=== PATIENT | female | born 1945 | race Caucasian/White ===

== ENCOUNTER 2017-09-06 21:56 | Emergency (ER) | payer MEDICARE, OTHER ==
[~2017-09-06] VITALS: Ht 168.9 cm; Wt 125.0 kg
[2017-09-06 22:00] VITALS: BP 198/90; PULSE 104; RESP 16; TEMP 99.1; O2SAT 95
[2017-09-06] MEDS ORDERED: LISI-515 PO (22:45)
[2017-09-06] MEDS ORDERED: LORA5TAB3 PO (22:45)
[2017-09-06] MEDS ORDERED: SITA1TAB2 PO (22:45)
[2017-09-06] MEDS ORDERED: LANTUS2P SQ (22:45)
[2017-09-06] MEDS ORDERED: ASPI81CH6 CHEW (22:45)
[2017-09-06] MEDS ORDERED: GABA600T PO (22:46)
[2017-09-06] MEDS ORDERED: LIPI40TA PO (22:46)
[2017-09-06] MEDS ORDERED: VENL75TA PO (22:46)
[2017-09-06] MEDS ORDERED: TRAZ50TA12 PO (22:47)
[2017-09-06] MEDS ORDERED: AMIT10TA6 PO (22:47)
[2017-09-06] MEDS ORDERED: [UNRECOGNIZED DRUG - OTHER] PO (22:47)
[2017-09-06 22:48] VITALS: BP 165/73; PULSE 93; RESP 18; O2SAT 98
[2017-09-06] MEDS ORDERED: VITATAB11 (22:48)
[2017-09-06 23:00] VITALS: O2SAT 97
[2017-09-06] MEDS ORDERED: ONDANSETRON HCL 4 MG/2 ML VIAL IV PUSH ONE (23:15)
[2017-09-06] MEDS ORDERED: SODIUM CHLOR 0.9% 1000 ML INJ 1,000 ML IV ONE (23:15)
[2017-09-06] MEDS ORDERED: IBUPROFEN 600 MG TAB PO ONE (23:15)
--- NOTE | 2017-09-06 23:15 | PD ---
HPI Chief Complaint: GI Complaint Time Seen by Provider: 23:08 Travel History International Travel<30 days: No Contact w/Intl Traveler<30days: No Traveled to known affect area: No History of Present Illness HPI This is a 72-year-old female with history of hypertension, diabetes mellitus, hyperlipidemia, who presents here with nausea vomiting diarrhea since yesterday. Patient states on Tuesday evening while driving down here from [place], she was drinking milk it tasted better. She reports it tasted slightly sour however she still drank it. She states at 7:00 in the morning on Tuesday she started sprinting nausea vomiting and loose stools. She denies any chills but does report fevers. She denies any URI symptoms. There is no reported urinary symptoms. She does report mild headache with the vomiting. There are no other complaints at the time of my examination. PFSH Past Medical History Cardiovascular Problems: Yes (HTN, high cholesterol) Diabetes: Yes Patient Takes Glucophage: No Gastrointestinal Disorders: Yes (diverticulosis ) Respiratory: Yes (idiopathic SOB, sleep apnea) Pneumonia: Yes Sleep Apnea: Yes (cpap at home ) Tetanus Vaccination: > 5 Years Influenza Vaccination: Yes ?: Not Past Surgical History Hysterectomy: Yes (total ) Other Surgery: Yes (3 spinal fusions t9-L5) Social History Alcohol Use: No Tobacco Use: No Substance Use: No Allergies-Medications (Allergen,Severity, Reaction): Coded Allergies: Sulfa (Sulfonamide Antibiotics) (Verified Allergy, Unknown, 09/06/17) albuterol (Verified Allergy, Unknown, 09/06/17) enoxaparin (Verified Allergy, Unknown, 09/06/17) Reported Meds & Prescriptions Reported Meds & Active Scripts Active Reported Vitamin B Complex (B-Complex Vitamins) 1 Tab [dizanidine] 2 Mg PO DAILY Amitriptyline (Amitriptyline HCl) 10 Mg Tab 20 Mg PO HS Trazodone (Trazodone HCl) 50 Mg Tab 50 Mg PO HS Gabapentin 600 Mg Tab 900 Mg PO BID Effexor (Venlafaxine HCl) 75 Mg Tab 75 Mg PO DAILY Lipitor (Atorvastatin Calcium) 40 Mg Tab 40 Mg PO HS Loratadine-D 12 HR (Loratadine-Pseudoephedrine 12 HR) 5-120 Mg Tab 10 Tab PO DAILY Lisinopril 20 Mg Tab 20 Mg PO DAILY Januvia (Sitagliptin Phosphate) 100 Mg Tab 100 Mg PO DAILY Lantus Inj (Insulin Glargine) 1,000 Unit/10 Ml Vial 45 Units SQ HS Aspirin Low Dose (Aspirin) 81 Mg Chew 81 Mg CHEW DAILY Review of Systems Except as stated in HPI: all other systems reviewed are Neg General / Constitutional: Positive: Fever, No: Chills HENT: Positive: Headaches, No: Neck Stiffness (bifrontal), Neck Pain Cardiovascular: No: Chest Pain or Discomfort, Palpitations Respiratory: No: Cough, Shortness of Breath Gastrointestinal: Positive: Nausea, Vomiting, Diarrhea, Abdominal Pain (crampy discomfort, no true abdominal pain.) Genitourinary: No: Frequency, Dysuria Musculoskeletal: No: Myalgias, Weakness, Pain Skin: No Rash Neurologic: Positive: Headache (mild bifrontal), No: Dizziness, Change in Mentation Physical Exam Narrative GENERAL: Well-nourished, well-developed patient in no acute distress. SKIN: Focused skin assessment warm/dry. HEAD: Normocephalic/atraumatic. EYES: No scleral icterus. No injection or drainage. NECK: Supple, trachea midline. No JVD or lymphadenopathy. CARDIOVASCULAR: Regular rate and rhythm without murmurs, gallops, or rubs. RESPIRATORY: Breath sounds equal bilaterally. No accessory muscle use. GASTROINTESTINAL: Abdomen soft, non-tender, nondistended. No rebound or guarding. MUSCULOSKELETAL: No cyanosis, or edema. NEUROLOGICAL: Awake and alert. Cranial nerves II through XII intact. Motor grossly within normal limits. Five out of 5 muscle strength in all muscle groups. Normal speech. Data Data Last Documented VS Vital Signs Date Time Temp Pulse Resp B/P (MAP) Pulse Ox O2 Delivery O2 Flow Rate FiO2 09/06/17 22:48 93 18 165/73 (103) 98 Room Air 09/06/17 22:00 99.1 Orders Orders Complete Blood Count With Diff (09/06/17 23:09) Comprehensive Metabolic Panel (09/06/17 23:09) Lipase (09/06/17 23:09) Urinalysis - C+S If Indicated (09/06/17 23:09) Iv Access Insert/Monitor (09/06/17 23:09) Ecg Monitoring (09/06/17 23:09) Oximetry (09/06/17 23:09) Sodium Chlor 0.9% 1000 Ml Inj (Ns 1000 M (09/06/17 23:15) Ondansetron Inj (Zofran Inj) (09/06/17 23:15) Ibuprofen (Motrin) (09/06/17 23:15) Acetaminophen (Tylenol) (09/06/17 23:30) Sodium Chlorid 0.9% 500 Ml Inj (Ns 500 M (09/07/17 00:45) Labs Laboratory Tests Test 09/06/17 23:30 09/07/17 00:30 White Blood Count 5.7 TH/MM3 Red Blood Count 4.57 MIL/MM3 Hemoglobin 14.7 GM/DL Hematocrit 41.5 % Mean Corpuscular Volume 90.7 FL Mean Corpuscular Hemoglobin 32.1 PG Mean Corpuscular Hemoglobin Concent 35.4 % Red Cell Distribution Width 13.4 % Platelet Count 158 TH/MM3 Mean Platelet Volume 9.6 FL Neutrophils (%) (Auto) 68.8 % Lymphocytes (%) (Auto) 17.0 % Monocytes (%) (Auto) 13.3 % Eosinophils (%) (Auto) 0.5 % Basophils (%) (Auto) 0.4 % Neutrophils # (Auto) 3.9 TH/MM3 Lymphocytes # (Auto) 1.0 TH/MM3 Monocytes # (Auto) 0.8 TH/MM3 Eosinophils # (Auto) 0.0 TH/MM3 Basophils # (Auto) 0.0 TH/MM3 CBC Comment DIFF FINAL Differential Comment Blood Urea Nitrogen 27 MG/DL Creatinine 1.16 MG/DL Random Glucose 210 MG/DL Total Protein 7.3 GM/DL Albumin 3.6 GM/DL Calcium Level 8.8 MG/DL Alkaline Phosphatase 125 U/L Aspartate Amino Transf (AST/SGOT) 33 U/L Alanine Aminotransferase (ALT/SGPT) 30 U/L Total Bilirubin 1.6 MG/DL Sodium Level 140 MEQ/L Potassium Level 3.7 MEQ/L Chloride Level 107 MEQ/L Carbon Dioxide Level 24.5 MEQ/L Anion Gap 9 MEQ/L Estimat Glomerular Filtration Rate 46 ML/MIN Lipase 61 U/L Urine Color YELLOW Urine Turbidity CLEAR Urine pH 5.5 Urine Specific [place] 1.024 Urine Protein TRACE mg/dL Urine Glucose (UA) 1000 mg/dL Urine Ketones NEG mg/dL Urine Occult Blood TRACE Urine Nitrite NEG Urine Bilirubin NEG Urine Urobilinogen LESS THAN 2.0 MG/DL Urine Leukocyte Esterase NEG Urine RBC 1 /hpf Urine WBC 1 /hpf Urine Squamous Epithelial Cells <1 /hpf Urine Bacteria RARE /hpf Urine Hyaline Casts 13 /lpf Urine Granular Casts 1 /lpf Urine Mucus FEW /lpf Microscopic Urinalysis Comment CULT NOT INDICATED MDM Medical Decision Making Medical Screen Exam Complete: Yes Emergency Medical Condition: Yes Differential Diagnosis Viral gastroenteritis versus foodborne related gastroenteritis versus metabolic derangement. Narrative Course 72-year-old female presents here with nausea vomiting and loose stools. The patient has a history of diabetes mellitus. She states that she had suspicious milk on Tuesday when they were driving down from [place]. The patient denies any chills but did states that she felt febrile. This is likely food related. White blood cell count is within normal limits. Her BUN and creatinine were elevated at 27 over 1.13. His been given a 1 L of IVD fluid followed by a second 500 cc bolus. She's been given Zofran. She is tolerated her Tylenol without difficulty. She's been able to tolerate water without any problems. She'll be discharged with a prescription for Compazine. She told to use Afrin nausea. She's also instructed to return if she does any worsening symptoms i.e. continued fever, inability to hold down fluids, or any other reason. She is made aware of her findings on lab and will be given a copy of her lab work to take home when she goes back to [place]. Diagnosis Primary Impression: Nausea vomiting and diarrhea Additional Impressions: Diabetes mellitus Mild dehydration Additional Instructions: Return if feeling worse. Drink plenty of fluids. Follow up with her primary care physician when you return back home to [place]. Med/Other Pt SpecificInfo: Prescription(s) given Scripts Prochlorperazine Maleate (Prochlorperazine Maleate) 10 Mg Tab 10 MG PO Q6H Y for NAUSEA OR VOMITING, #15 TAB 0 Refills Prov: Dewayne Mercado MD 09/07/17 Disposition: 01 DISCHARGE HOME Condition: Stable Dewayne Mercado MD Sep 06, 2017 23:15
[2017-09-06] MEDS ORDERED: ACETAMINOPHEN 325 MG TAB PO ONE (23:30)
[2017-09-07] LABS: AUTOMATED NEUTROPHIL # 3.9 TH/MM3 (1.8-7.7); BASOPHIL % 0.4 % (0.0-2.0); EOSINOPHIL % 0.5 % (0.0-4.0); HEMATOCRIT 41.5 % (35.0-46.0); HEMOGLOBIN 14.7 GM/DL (11.6-15.3); MEAN CELL VOLUME 90.7 FL (80.0-100.0); MEAN CORPUSCULAR HEMOGLOBIN 32.1 PG (27.0-34.0); MEAN CORPUSCULAR HGB CONC 35.4 % (32.0-36.0); MEAN PLATELET VOLUME 9.6 FL (7.0-11.0); MONO % 13.3 % (0.0-8.0); MONOCYTE # 0.8 TH/MM3 (0-0.9); NEUT % 68.8 % (16.0-70.0); PLATELET COUNT 158 TH/MM3 (150-450); RED BLOOD COUNT 4.57 MIL/MM3 (4.00-5.30); RED CELL DISTRIBUTION WIDTH 13.4 % (11.6-17.2); WHITE BLOOD COUNT 5.7 TH/MM3 (4.0-11.0)
[2017-09-07 00:14] LABS: ALBUMIN 3.6 GM/DL (3.4-5.0); ALT (GPT) 30 U/L (10-53); AST (GOT) 33 U/L (15-37); BICARBONATE 24.5 MEQ/L (21.0-32.0); BLOOD UREA NITROGEN 27 MG/DL (7-18); CALCIUM 8.8 MG/DL (8.5-10.1); CHLORIDE 107 MEQ/L (98-107); CREATININE 1.16 MG/DL (0.50-1.00); GLOMERULAR FILTRATION RATE 46 ML/MIN (>89); GLUCOSE,RANDOM 210 MG/DL (74-106); LIPASE 61 U/L (73-393); SODIUM (NA) 140 MEQ/L (136-145)
[2017-09-07 00:16] LABS: ALKALINE PHOSPHATASE 125 U/L (45-117); TOTAL BILIRUBIN ADULT 1.6 MG/DL (0.2-1.0); TOTAL PROTEIN 7.3 GM/DL (6.4-8.2)
[2017-09-07] MEDS ORDERED: SODIUM CHLORID 0.9% 500 ML INJ 500 ML IV ONE (00:45)
[2017-09-07 00:52] LABS: BACTERIA, URINE RARE /hpf; BILIRUBIN, URINE NEG (NEG); BLOOD, URINE TRACE (NEG); GLUCOSE,URINE 1000 mg/dL (NEG); HYALINE CAST, URINE 13 /lpf (RARE); KETONE, URINE NEG (NEG); MUCUS URINE FEW /lpf (OCC); NITRITE,URINE NEG (NEG); PH, URINE 5.5 (5.0-8.5); SQUAMOUS EPITHELIAL CELL URINE <1 /hpf (0-5); URINE COLOR YELLOW (YELLW/STRAW); URINE LEUKOCYTE ESTERASE NEG (NEG)
[2017-09-07] MEDS ORDERED: PROC10TA PO (01:12)
[2017-09-10] MEDS ORDERED: TIZA2CAP3 PO (12:08)
== END 2017-09-07 01:48 | disposition home or self-care (01) ==
LOC: NEPE 21:56
DX: R11.2 Nausea with vomiting, unspecified (principal); R19.7 Diarrhea, unspecified; E11.9 Type 2 diabetes mellitus without complications; E86.0 Dehydration; E78.00 Pure hypercholesterolemia, unspecified; I10 Essential (primary) hypertension; Z79.4 Long term (current) use of insulin
CPT/HCPCS: 80053; 81001; 83690; 85025; 96361; 96374; 99284; J2405; J7030; J7040

== ENCOUNTER 2017-09-08 12:44 | Emergency (ER) | payer OTHER ==
[2017-09-08] VITALS (7 sets, daily range): BP systolic 171–243; BP diastolic 75–104; PULSE 81–104; RESP 16–24; TEMP 98.2; O2SAT 0–99
[~2017-09-08] VITALS: Ht 167.6 cm; Wt 122.0 kg
[~2017-09-08 12:44] MED LIST: AMIT10TA6 PO; ASPI81CH6 CHEW; GABA600T PO; LANTUS2P SQ; LIPI40TA PO; LISI-515 PO; LORA5TAB3 PO; PROC10TA PO; SITA1TAB2 PO; TRAZ50TA12 PO; VENL75TA PO; VITATAB11; [UNRECOGNIZED DRUG - OTHER] PO
[2017-09-08] MEDS ORDERED: SODIUM CHLOR 0.9% 1000 ML INJ 1,000 ML IV SCH (16:07)
--- NOTE | 2017-09-08 16:11 | PD ---
HPI Chief Complaint: GI Complaint Time Seen by Provider: 15:56 Travel History International Travel<30 days: No Contact w/Intl Traveler<30days: No Traveled to known affect area: No History of Present Illness HPI This is a 72-year-old female history of hypertension, diabetes, hyperlipidemia who presents for evaluation. The patient initially presented here on September 06 for evaluation after possible food poisoningshe reports that she drank sour milk and developed nausea, vomiting, diarrhea. She was prescribed Compazine which has helped with her vomiting-she reports that she has had some persistent nausea but has not vomited since her visit on Tuesday. She has slowly been able to advance her diet- she has been able to tolerate chicken noodle soup, toast. She presents today because she has continued to feel fatigue, nausea, her blood sugar was elevated in the mid 200s at home and she has been having chills. She has not any any objective fevers. She reports slightly loose stools still. Denies abdominal pain, cough, congestion, sore throat, rash. She has not taken her Lantus over the past few days because of her decreased diet. She has no other complaints. PFSH Past Medical History Cardiovascular Problems: Yes (HTN, high cholesterol) Diabetes: Yes Gastrointestinal Disorders: Yes (diverticulosis ) Respiratory: Yes (idiopathic SOB, sleep apnea) Pneumonia: Yes Sleep Apnea: Yes (cpap at home ) Past Surgical History Hysterectomy: Yes (total ) Other Surgery: Yes (3 spinal fusions t9-L5) Social History Alcohol Use: No Tobacco Use: No Substance Use: No Allergies-Medications (Allergen,Severity, Reaction): Coded Allergies: Sulfa (Sulfonamide Antibiotics) (Verified Allergy, Unknown, 09/08/17) albuterol (Verified Allergy, Unknown, 09/08/17) enoxaparin (Verified Allergy, Unknown, 09/08/17) NSAIDS (Non-Steroidal Anti-Inflamma (Verified Adverse Reaction, Severe, 09/08/17) GI UPSET Reported Meds & Prescriptions Reported Meds & Active Scripts Active Prochlorperazine Maleate 10 Mg Tab 10 Mg PO Q6H PRN Reported Vitamin B Complex (B-Complex Vitamins) 1 Tab [dizanidine] 2 Mg PO DAILY Amitriptyline (Amitriptyline HCl) 10 Mg Tab 20 Mg PO HS Trazodone (Trazodone HCl) 50 Mg Tab 50 Mg PO HS Gabapentin 600 Mg Tab 900 Mg PO BID Effexor (Venlafaxine HCl) 75 Mg Tab 75 Mg PO DAILY Lipitor (Atorvastatin Calcium) 40 Mg Tab 40 Mg PO HS Loratadine-D 12 HR (Loratadine-Pseudoephedrine 12 HR) 5-120 Mg Tab 10 Tab PO DAILY Lisinopril 20 Mg Tab 20 Mg PO DAILY Januvia (Sitagliptin Phosphate) 100 Mg Tab 100 Mg PO DAILY Lantus Inj (Insulin Glargine) 1,000 Unit/10 Ml Vial 45 Units SQ HS Aspirin Low Dose (Aspirin) 81 Mg Chew 81 Mg CHEW DAILY Review of Systems Except as stated in HPI: all other systems reviewed are Neg Physical Exam Narrative GENERAL: Well-developed well-nourished female in no acute distress. Noted to be hypertensive. SKIN: Warm and dry. HEAD: Atraumatic. Normocephalic. EYES: Pupils equal and round. No scleral icterus. No injection or drainage. ENT: No nasal bleeding or discharge. Mucous membranes pink and moist. NECK: Trachea midline. No JVD. CARDIOVASCULAR: Regular rate and rhythm. No murmur appreciated. RESPIRATORY: No accessory muscle use. Clear to auscultation. Breath sounds equal bilaterally. GASTROINTESTINAL: Abdomen soft, non-tender, nondistended. Hepatic and splenic margins not palpable. MUSCULOSKELETAL: No obvious deformities. No clubbing. No cyanosis. No edema. NEUROLOGICAL: Awake and alert. No obvious cranial nerve deficits. Motor grossly within normal limits. Normal speech. PSYCHIATRIC: Appropriate mood and affect; insight and judgment normal. Data Data Last Documented VS Vital Signs Date Time Temp Pulse Resp B/P (MAP) Pulse Ox O2 Delivery O2 Flow Rate FiO2 09/08/17 17:23 83 18 171/75 (107) 96 09/08/17 17:19 Room Air 09/08/17 12:46 98.2 Orders Orders Complete Blood Count With Diff (09/08/17 16:07) Comprehensive Metabolic Panel (09/08/17 16:07) Lipase (09/08/17 16:07) Iv Access Insert/Monitor (09/08/17 16:07) Ondansetron Inj (Zofran Inj) (09/08/17 16:15) Sodium Chlor 0.9% 1000 Ml Inj (Ns 1000 M (09/08/17 16:07) Labetalol Inj (Trandate Inj) (09/08/17 16:15) Potassium Chloride (Kcl) (09/08/17 17:30) Ed Discharge Order (09/08/17 17:55) Labs Laboratory Tests Test 09/08/17 16:35 White Blood Count 5.5 TH/MM3 Red Blood Count 4.72 MIL/MM3 Hemoglobin 14.7 GM/DL Hematocrit 42.6 % Mean Corpuscular Volume 90.3 FL Mean Corpuscular Hemoglobin 31.3 PG Mean Corpuscular Hemoglobin Concent 34.6 % Red Cell Distribution Width 13.3 % Platelet Count 167 TH/MM3 Mean Platelet Volume 9.1 FL Neutrophils (%) (Auto) 60.6 % Lymphocytes (%) (Auto) 24.8 % Monocytes (%) (Auto) 13.7 % Eosinophils (%) (Auto) 0.4 % Basophils (%) (Auto) 0.5 % Neutrophils # (Auto) 3.4 TH/MM3 Lymphocytes # (Auto) 1.4 TH/MM3 Monocytes # (Auto) 0.8 TH/MM3 Eosinophils # (Auto) 0.0 TH/MM3 Basophils # (Auto) 0.0 TH/MM3 CBC Comment DIFF FINAL Differential Comment Blood Urea Nitrogen 15 MG/DL Creatinine 0.95 MG/DL Random Glucose 192 MG/DL Total Protein 7.2 GM/DL Albumin 3.6 GM/DL Calcium Level 9.2 MG/DL Alkaline Phosphatase 115 U/L Aspartate Amino Transf (AST/SGOT) 50 U/L Alanine Aminotransferase (ALT/SGPT) 44 U/L Total Bilirubin 1.1 MG/DL Sodium Level 140 MEQ/L Potassium Level 3.3 MEQ/L Chloride Level 105 MEQ/L Carbon Dioxide Level 23.9 MEQ/L Anion Gap 11 MEQ/L Estimat Glomerular Filtration Rate 58 ML/MIN Lipase 59 U/L MDM Medical Decision Making Medical Screen Exam Complete: Yes Emergency Medical Condition: Yes Medical Record Reviewed: Yes Differential Diagnosis Gastroenteritis, dehydration, electrolyte abnormality, small bowel obstruction Narrative Course 72-year-old female presents for evaluation after recently being diagnosed with food poisoning. She has had some nausea but has been able to slowly advance diet. Today she was having chills and her blood sugar was elevated. She has not been taking her Lantus secondary to the decreased oral intake. She appears well on initial examination. Her abdomen is soft and nontender. She does not appear acutely dehydrated. She has hypertensive-history of hypertension, takes lisinopril, compliant with medication regimen. Plan is for basic lab work, the patient was given IV fluids and labetalol as well as Zofran. Lab work is been reviewed. Potassium is 3.3 so the patient was given oral potassium chloride. Blood pressure normalized. The patient felt significantly improved upon reexamination. She is stable for discharge-encouraged her to take her insulin as instructed and to keep a close watch on her blood sugar as she increases her diet. Diagnosis Primary Impression: Gastroenteritis Additional Instructions: Take your medication as prescribed. Monitor blood pressure on a regular basis and keep a journal of these readings. Advance diet as tolerated. Return for any acutely new or worsening symptoms. Med/Other Pt SpecificInfo: No Change to Meds Disposition: 01 DISCHARGE HOME Condition: Stable Pradeep Rivera Sep 08, 2017 16:11
[2017-09-08] MEDS ORDERED: ONDANSETRON HCL 4 MG/2 ML VIAL IVP ONE (16:15)
[2017-09-08] MEDS ORDERED: LABETALOL HCL 100 MG/20 ML VIAL IV PUSH ONE (16:15)
[2017-09-08 17:04] LABS: AUTOMATED NEUTROPHIL # 3.4 TH/MM3 (1.8-7.7); BASOPHIL % 0.5 % (0.0-2.0); EOSINOPHIL % 0.4 % (0.0-4.0); HEMATOCRIT 42.6 % (35.0-46.0); HEMOGLOBIN 14.7 GM/DL (11.6-15.3); LYMPH % 24.8 % (9.0-44.0); LYMPHOCYTE # 1.4 TH/MM3 (1.0-4.8); MEAN CELL VOLUME 90.3 FL (80.0-100.0); MEAN CORPUSCULAR HEMOGLOBIN 31.3 PG (27.0-34.0); MEAN CORPUSCULAR HGB CONC 34.6 % (32.0-36.0); MEAN PLATELET VOLUME 9.1 FL (7.0-11.0); MONO % 13.7 % (0.0-8.0); MONOCYTE # 0.8 TH/MM3 (0-0.9); NEUT % 60.6 % (16.0-70.0); PLATELET COUNT 167 TH/MM3 (150-450); RED BLOOD COUNT 4.72 MIL/MM3 (4.00-5.30); RED CELL DISTRIBUTION WIDTH 13.3 % (11.6-17.2); WHITE BLOOD COUNT 5.5 TH/MM3 (4.0-11.0)
[2017-09-08 17:28] LABS: ALBUMIN 3.6 GM/DL (3.4-5.0); ALT (GPT) 44 U/L (10-53); AST (GOT) 50 U/L (15-37); BICARBONATE 23.9 MEQ/L (21.0-32.0); BLOOD UREA NITROGEN 15 MG/DL (7-18); CALCIUM 9.2 MG/DL (8.5-10.1); CHLORIDE 105 MEQ/L (98-107); CREATININE 0.95 MG/DL (0.50-1.00); GLOMERULAR FILTRATION RATE 58 ML/MIN (>89); GLUCOSE,RANDOM 192 MG/DL (74-106); LIPASE 59 U/L (73-393); SODIUM (NA) 140 MEQ/L (136-145)
[2017-09-08] MEDS ORDERED: POTASSIUM CHLORIDE 20 MEQ CONTROLLED RELEASE TAB PO ONE (17:30)
[2017-09-08 17:49] LABS: ALKALINE PHOSPHATASE 115 U/L (45-117); TOTAL BILIRUBIN ADULT 1.1 MG/DL (0.2-1.0); TOTAL PROTEIN 7.2 GM/DL (6.4-8.2)
[2017-09-10] MEDS ORDERED: TIZA2CAP3 PO (12:08)
== END 2017-09-08 18:41 | disposition home or self-care (01) ==
LOC: NEPE 12:44
DX: K52.9 Noninfective gastroenteritis and colitis, unspecified (principal); E11.9 Type 2 diabetes mellitus without complications; I10 Essential (primary) hypertension; E78.00 Pure hypercholesterolemia, unspecified; G47.30 Sleep apnea, unspecified; Z87.01 Personal history of pneumonia (recurrent); Z88.2 Allergy status to sulfonamides
CPT/HCPCS: 80053; 83690; 85025; 96374; 96375; 99284; J2405; J7030